=== PATIENT | female | born 1965 | race African-American/Black ===

== ENCOUNTER 2018-02-24 09:45 | Emergency (ER) | payer SELFPAY ==
[~2018-02-24] VITALS: Ht 154.9 cm; Wt 75.0 kg
[2018-02-24 09:55] VITALS: BP 134/84; PULSE 85; RESP 18; TEMP 98.3; O2SAT 96
--- NOTE | 2018-02-24 11:10 | PD ---
HPI Chief Complaint: Eye Problems/Injury Time Seen by Provider: 10:59 Travel History International Travel<30 days: No Contact w/Intl Traveler<30days: No Traveled to known affect area: No History of Present Illness HPI 53-year-old female presents to the emergency department with complaint of right- sided facial swelling and swelling to her right lower eyelid. The right sided facial swelling started today and she woke up this morning with the lower eyelid swelling. She says she has a little pimple-like "boil" on the right side of her face that that she thinks is causing the problem. Denies fever, vomiting. Denies change in vision. Denies blurred vision. Denies trauma to the face or eye. Reports pain is 7/10. Has been taking Tylenol and using a warm rag to the area for symptom management. No known relieving factors. Constantly aggravated. Primary CARE providers Dr. mcrae. No known allergies. History of hypertension. Has no other medical complaints. No other modifying factors or associated signs and symptoms. PFSH Past Medical History Cardiovascular Problems: Yes (HTN) ?: Not LMP: NO PERIODS Social History Tobacco Use: Yes Allergies-Medications (Allergen,Severity, Reaction): Coded Allergies: No Known Allergies (Verified Allergy, Unknown, 02/24/18) Reported Meds & Prescriptions Reported Meds & Active Scripts Active Ibuprofen 800 Mg Tab 800 Mg PO Q6HR PRN Clindamycin (Clindamycin HCl) 150 Mg Cap 450 Mg PO Q6H 10 Days Review of Systems Except as stated in HPI: all other systems reviewed are Neg Physical Exam Narrative GENERAL: Well-nourished, well-developed black female patient, in no acute distress; afebrile, nontoxic-appearing SKIN: There is an indurated area to the right facial temporal area that is nonfluctuant and there is a small pimple noted that is without drainage; there is warmth to the area, but no erythema. No palpable abscess. HEAD: Atraumatic. Normocephalic. EYES: Pupils equal and round at 3 mm with brisk reaction. No scleral icterus. No injection or drainage. PERRLA. EOMI. No tenderness on palpation to the right orbital. The right lower eyelid is edematous and it is without tenderness or erythema. No signs of orbital cellulitis ENT: Mucosa pink and moist. Airway patent. NECK: Trachea midline. CARDIOVASCULAR: Regular rate. RESPIRATORY: No accessory muscle use. GASTROINTESTINAL: Rounded. MUSCULOSKELETAL: No obvious deformities. No clubbing. No cyanosis. No edema. NEUROLOGICAL: Awake and alert. Oriented 3. No obvious cranial nerve deficits. Motor grossly within normal limits. Normal speech. PSYCHIATRIC: Appropriate mood and affect; insight and judgment normal. Data Data Last Documented VS Vital Signs Date Time Temp Pulse Resp B/P (MAP) Pulse Ox O2 Delivery O2 Flow Rate FiO2 02/24/18 09:55 98.3 85 18 134/84 (101) 96 Orders Orders Clindamycin Inj (Cleocin Inj) (02/24/18 11:15) Ketorolac Inj (Toradol Inj) (02/24/18 11:15) Ed Discharge Order (02/24/18 11:15) [facility] Medical Decision Making Medical Screen Exam Complete: Yes Emergency Medical Condition: Yes Medical Record Reviewed: Yes Differential Diagnosis Facial cellulitis, folliculitis, facial abscess Narrative Course 53-year-old female physical exam consistent with right-sided facial cellulitis. The patient is afebrile and nontoxic-appearing. Patient does have swelling to the right lower eyelid and there is no orbital tenderness and no signs of orbital cellulitis. There is no fluctuance to the area or palpable abscess. I did discuss possibility of development of abscess and need for incision and drainage. I discussed patient with Dr. Talley and she agrees with my plan of care and disposition. Instructed patient to return to the emergency department in 48 hours for recheck. Clindamycin 600 mg IM administered in the ER. Toradol administered in the ER. Clindamycin and ibuprofen prescribed for home. Diagnosis Primary Impression: Facial cellulitis Referrals: [facility] Primary Care Physician Patient Instructions: Cellulitis (ED), General Instructions Additional Instructions: Complete full course of antibiotics Warm compresses to the affected area Keep area clean and dry Ibuprofen or Tylenol as directed and as needed for pain and inflammation Return to the emergency department in 48 hours for recheck, or sooner if symptoms worsen Follow-up with primary care provider Return to emergency department immediately with worsening of symptoms Med/Other Pt SpecificInfo: Prescription(s) given Scripts Ibuprofen (Ibuprofen) 800 Mg Tab 800 MG PO Q6HR Y for PAIN, #30 TAB 0 Refills Prov: Elayne Marti 02/24/18 Clindamycin (Clindamycin) 150 Mg Cap 450 MG PO Q6H for Infection for 10 Days, #120 CAP 0 Refills Prov: Elayne Marti 02/24/18 Disposition: 01 DISCHARGE HOME Condition: Stable Elayne Marti Feb 24, 2018 11:10
[2018-02-24] MEDS ORDERED: KETOROLAC TROMETHAMINE 60 MG/2 ML (IM) VIAL IM ONE (11:15)
[2018-02-24] MEDS ORDERED: CLINDAMYCIN PHOS 600 MG/4 ML VIAL IM ONE (11:15)
[2018-02-24] MEDS ORDERED: IBUP1TAB7 PO (11:15)
[2018-02-24] MEDS ORDERED: CLIN150C14 PO (11:15)
== END 2018-02-24 12:36 | disposition home or self-care (01) ==
LOC: NEPD 09:45
DX: L03.211 Cellulitis of face (principal); Z72.0 Tobacco use
CPT/HCPCS: 99283; J1885